=== PATIENT | male | born 1965 | race Caucasian/White ===

== ENCOUNTER 2020-11-03 16:01 | Emergency (ER) | payer OTHER ==
[~2020-11-03] VITALS: Ht 180.3 cm; Wt 99.0 kg
--- NOTE | 2020-11-03 16:38 | NUR ---
PT CAME IN [facility] ANKLE SWELLING THAT STARTED ABOUT A WEEK AGO. DENIES TRAUMA. BUT HE DID SWITH HIS MEDS FROM AMLODAPINE AND LOSARTAAN TO NEFEDIPINE AND HE THINKS THAT MAY HAVE BEEN PART OF THE ISSUE. PT RESTING IN [facility]. CONNECTED TO MONITORING EQUIPMENT.
[2020-11-03 17:08] LABS: BASOPHILS % (AUTO) 0 % (0-1); EOSINOPHILS % (AUTO) 1 % (1-7); LYMPHOCYTES % (AUTO) 21 % (22-44); MEAN CORPUSCULAR HEMOGLOBIN 35.7 pg (27.5-34.5); MEAN CORPUSCULAR HGB CONC 35.9 g/dL (33.2-36.2); MEAN PLATELET VOLUME 6.8 fL (7.4-10.4); MONOCYTES % (AUTO) 11 % (2-9); NEUTROPHILS % (AUTO) 66 % (42-75); PLATELET COUNT 173 x10^3/uL (130-400); RED CELL DISTRIBUTION WIDTH 13.8 % (9.4-14.8)
[2020-11-03 17:21] LABS: ALANINE AMINOTRANSFERASE 83 U/L (12-78); ALBUMIN 4.5 g/dL (3.4-5.0); ANION GAP 8 mmol/L (5-15); CALCIUM 9.1 mg/dL (8.5-10.1); CHLORIDE 105 mmol/L (98-107); CREATININE 1.02 mg/dL (0.7-1.3)
[2020-11-03 17:25] LABS: ALKALINE PHOSPHATASE 70 U/L (45-117); BILIRUBIN,TOTAL 0.7 mg/dL (0.2-1.0); TOTAL PROTEIN 7.6 g/dL (6.4-8.2)
[2020-11-03 17:31] VITALS: BP 143/76
--- NOTE | 2020-11-03 17:31 | NUR ---
bedside for recheck
== END 2020-11-03 17:58 | disposition home or self-care (01) ==
LOC: ED 17:50
DX: I10 Essential (primary) hypertension (principal); R60.0 Localized edema; R07.9 Chest pain, unspecified; Z76.0 Encounter for issue of repeat prescription; R94.31 Abnormal electrocardiogram [ECG] [EKG]
CPT/HCPCS: 36415; 71045; 80053; 83880; 85025; 93005; 99285